=== PATIENT | female | born 1970 | race Caucasian/White ===

== ENCOUNTER 2016-07-06 07:26 | Day surgery (SDC) | payer BC ==
--- NOTE | 2016-07-06 07:53 | OR ---
Anesthesia Pre Procedure Eval Pre Procedure Evaluation: Last Vital Signs Temp 36.1 C L 07/06/16 07:33 Pulse 77 07/06/16 07:33 Resp 16 07/06/16 07:33 BP 120/70 07/06/16 07:33 Pulse Ox 95 07/06/16 07:33 PRE PROCEDURE EVALUATION:: DATE: 07/06/2016 TIME: INDICATIONS: Radicular low back pain. Bulging disc L5-S1 PAST MEDICAL HISTORY: No previous epidural steroid injections. EXAM: Lungs clear and equal. Heart rate regular. Patient complains of low back pain that radiates into her right leg. She has no left hip or left leg involvement. Procedure risks and benefits were explained to and accepted by the patient. ASSESSMENT OF MEDICAL STATUS: No contraindication epidural injection. PLANNED PROCEDURE : Fluoroscopy-guided epidural injection at L5-S1. Home Medications: HOME MEDICATIONS Budesonide/Formoterol Fumarate [Symbicort 160-4.5 Mcg Inhaler] 2 puff IH BID 07/16 [Last Taken Unknown] Clobetasol Propionate/Emoll [Clobetasol Emollient 0.05% Crm] 1 appl TP DAILY 07/16 [Last Taken Unknown] Gabapentin 300 mg PO BID 07/01/16 [Last Taken Unknown] Mometasone Furoate [Nasonex] 2 spray NS DAILY 07/01/16 [Last Taken Unknown] Montelukast Sodium [Singulair] 10 mg PO HS 07/01/16 [Last Taken Unknown] Naltrexone HCl/Bupropion HCl [Contrave ER 8-90 mg Tablet] 2 tab PO BID 07/01/16 [Last Taken Unknown] Cetirizine HCl [Zyrtec] 10 mg PO DAILY 07/06/16 [Last Taken Unknown] Citalopram Hydrobromide [Citalopram HBr] 10 mg PO DAILY 07/06/16 [Last Taken Unknown]
[2016-07-06] MEDS ORDERED: DEXAMETHASONE SOD PHOSPHATE 10 MG/ML VIAL IJ ONE (08:10)
[2016-07-06] MEDS ORDERED: LIDOCAINE HCL/PF 5 ML VIAL IJ ONE (08:10)
[2016-07-06] MEDS ORDERED: IOPAMIDOL 20 ML VIAL IJ ONE (08:10)
--- NOTE | 2016-07-06 08:21 | OR ---
Anesthesia Procedure Note - Anesthesia Procedure Note Narrative: Vital Signs - Last Taken Temp 36.1 C L 07/06/16 07:33 Pulse 80 07/06/16 08:05 Resp 18 07/06/16 08:05 BP 131/77 07/06/16 08:05 Pulse Ox 97 07/06/16 08:05 O2 Oxygen Delivery Method Room Air 07/06/16 08:17 ANESTHESIA PROCEDURE NOTE Date of Procedure: 07/06/2016 Time of procedure: 01 06. Performed by: Porter Rooney CRNA Special Tax Auditor: None. Preprocedure diagnosis: Radicular low back pain. Bulging disc L4 5 L5-S1. Post procedure diagnosis: Same. Procedure: Epidural Steroid Injection at L4 5. Indications: Radicular low back pain. Findings: See below. Details of the procedure: The patient was brought back to operating room #2. The patient was then placed in the supine position. Back was prepped with DuraPrep. Patient was then draped in sterile fashion. Lidocaine 1% was infiltrated to the skin and subcutaneous tissues at the level of the L4 5 interspace. The epidural space was identified using a 20-gauge Tuohy needle with [id number] technique and fluoroscopic guidance. A total of 4 mL of Isovue-200 was injected to confirm needle placement in first the AP and lateral positions. Dexamethasone 10 mg + 5 mL of 1% preservative-free lidocaine was administered to the epidural space after negative aspiration for blood and CSF. The Tuohy needle was removed intact. A Band-Aid was applied to the patient's back. The patient was then placed in a supine position for 5 minutes before returning to the ambulatory surgical unit. A total of 32.5 seconds fluoroscopy time and 21.43 m/gy were used. EBL: Minimal. Fluids: N/A. Specimen: N/A. Post procedure condition: The patient tolerated the procedure well. No complications were noted. Thank you for this consultation. Porter Rooney CRNA
[2016-07-06 08:59] VITALS: BP 127/68
== END 2016-07-06 07:27 | disposition home or self-care (01) ==
LOC: AMB 07:26
PROVIDERS: ATTEND Family Medicine
PROC: 3E0S3BZ Introduction of Anesthetic Agent into Epidural Space, Percutaneous Approach (ICD-10-PCS; 2016-07-06)
PROC: 3E0S33Z Introduction of Anti-inflammatory into Epidural Space, Percutaneous Approach (ICD-10-PCS; principal; 2016-07-06 08:00)
DX: M51.26 Other intervertebral disc displacement, lumbar region (principal); M51.27 Other intervertebral disc displacement, lumbosacral region